=== PATIENT | male | born 1980 | race Caucasian/White ===

== ENCOUNTER 2018-01-11 17:54 | Emergency (ER) | payer MEDICARE, MEDICAID ==
[2018-01-11 18:01] VITALS: BP 133/90
[2018-01-11] MEDS ORDERED: HYDROcod/ACETAM 5/325 MG TABLET PO STA (18:21)
--- NOTE | 2018-01-11 18:24 | ED Physician Documentation ---
PD HPI LOWER EXT INJURY - Stated complaint Stated Complaint: KNEE INJURY - Chief complaint Chief Complaint: Ext Problem - History obtained from History obtained from: Patient - History of Present Illness PD HPI LOW EXT INJURY LOCATION: Right, Knee Type of injury: Twist Where injury occurred: Home Timing - onset: Today Timing - details: Abrupt onset Worsened by: Moving Associated symptoms: No: Weakness, Numbness, Tingling, Swelling - Additional information Additional information: He was helping someone lift a refrigerator and was on a step and started to fall in the knee twisted and he felt a pop over the patella. He is able to walk and bear weight but with a lot of pain. No other injuries. Review of Systems Constitutional: reports: Reviewed and negative Cardiac: reports: Reviewed and negative Respiratory: reports: Reviewed and negative PD PAST MEDICAL HISTORY - Past Medical History Psych: Depression, Anxiety - Present Medications Home Medications: Ambulatory Orders Medication Instructions Recorded Confirmed Haloperidol [Haldol] 10 mg PO DAILY 01/11/18 01/11/18 Meloxicam [Mobic] 7.5 mg PO BIDWM PRN #15 tablet 01/11/18 traZODone [Desyrel] 1 tab PO DAILY 01/11/18 01/11/18 - Allergies Allergies/Adverse Reactions: Allergies Allergy/AdvReac Type Severity Reaction Status Date / Time No Known Drug Allergies Allergy Verified 01/11/18 18:01 PD ED PE NORMAL - Vitals Vital signs reviewed: Yes - General General: Alert and oriented X 3, No acute distress - Extremities Extremities: Other (No obvious deformity or effusion of the right knee, extensor tendon function is intact. He has mild tenderness over the medial joint line and pain with ACL testing but no laxity of that or any of the other ligaments.) - Neuro Neuro: Alert and oriented X 3, Normal speech Results - Vitals Vitals: Vital Signs - 24 hr 01/11/18 17:57 Temperature 36.8 C Heart Rate 116 H Respiratory 16 Rate Blood Pressure 133/90 H O2 Saturation 97 Oxygen O2 Source Room air - Rads (name of study) R knee 4v Radiology: EMP read contemporaneously (NAD) Departure - Departure Disposition: 01 Home, Self Care Clinical Impression: Right knee sprain Qualifiers: Encounter type: initial encounter Involved ligament of knee: unspecified ligament Qualified Code(s): S83.91XA - Sprain of unspecified site of right knee , initial encounter Condition: Good Record reviewed to determine appropriate education?: Yes Instructions: ED Sprain Knee Prescriptions: Meloxicam [Mobic] 7.5 mg PO BIDWM PRN #15 tablet PRN Reason: Pain Comments: Recheck with your doctor in 1 week. Return if worse. Your blood pressure was elevated today on check into the emergency department. This does not mean that you have hypertension, it is a common phenomenon to come to the emergency department and have elevated blood pressure. I recommend that you see your primary care physician within the week to have it rechecked when you are feeling better.
--- NOTE | 2018-01-11 19:06 | XRAY Preliminary Report ---
Exam: XR KNEE 4 VIEW RT IMPRESSION: Normal knee radiography. [facility] SITE ID: [id number]
--- NOTE | 2018-01-11 19:10 | XRAY Report ---
EXAM: RIGHT KNEE RADIOGRAPHY. EXAM DATE: 01/11/2018 06:36 PM. CLINICAL HISTORY: Anterior knee pain after twisting injury 2 days ago. COMPARISON: 01/09/2009. MRI of the right knee 05/20/2009. TECHNIQUE: 4 views. FINDINGS: Bones: Normal. No fractures or bone lesions. Joints: Normal. No effusion. No subluxations. Soft Tissues: Normal. No soft tissue swelling. IMPRESSION: Normal knee radiography. [facility] Referring Provider Line: [phone] SITE ID: [id number]
[2018-01-11] MEDS ORDERED: MELOXICAM 7.5 MG TABLET PO STA (19:16)
== END 2018-01-11 19:53 | disposition home or self-care (01) ==
LOC: ED 17:54
DX: S83.91XA Sprain of unspecified site of right knee, initial encounter (principal); R03.0 Elevated blood-pressure reading, without diagnosis of hypertension; W18.43XA Slipping, tripping and stumbling without falling due to stepping from one level to another, initial encounter; W22.8XXA Striking against or struck by other objects, initial encounter; X50.0XXA Overexertion from strenuous movement or load, initial encounter; Y92.009 Unspecified place in unspecified non-institutional (private) residence as the place of occurrence of the external cause
CPT/HCPCS: 29530; 73564; 99283; A9270

== ENCOUNTER 2022-05-27 11:44 | Emergency (ER) | payer MEDICARE, MEDICAID ==
[2022-05-27 12:02] VITALS: BP 157/90
--- NOTE | 2022-05-27 12:49 | ED Physician Documentation ---
History of Present Illness - Stated complaint Stated Complaint: LIGHTHEAD/SYNCOPAL - Chief complaint Chief Complaint: General - History obtained from History obtained from: Patient (41-year-old gentleman presents for the evaluation of potential radiation to the left parietal region. He states that he has been using a telephone landline and over the last 12 years has been exposed to radiation in that area. He has a history of methamphetamine abuse.) Review of Systems Constitutional: denies: Fever, Chills Ears: denies: Ear pain Nose: denies: Rhinorrhea / runny nose Throat: denies: Sore throat PD PAST MEDICAL HISTORY - Past Medical History Psych: Depression, Anxiety - Past Surgical History Past Surgical History: Yes - Present Medications Home Medications: Ambulatory Orders Medication Instructions Recorded Confirmed Meloxicam [Mobic] 7.5 mg PO BIDWM PRN #15 tablet 01/11/18 haloperidoL [Haldol] 10 mg PO DAILY 01/11/18 01/11/18 traZODone [Desyrel] 1 tab PO DAILY 01/11/18 01/11/18 - Allergies Allergies/Adverse Reactions: Allergies Allergy/AdvReac Type Severity Reaction Status Date / Time No Known Drug Allergies Allergy Verified 05/27/22 11:59 - Social History Does the pt smoke?: No Smoking Status: Never smoker Does the pt drink ETOH?: No Does the pt have substance abuse?: No PD ED PE NORMAL - Vitals Vital signs reviewed: Yes - General General: Alert and oriented X 3, No acute distress, Other (He is delusional, how the FBI in [place] is after him.) - HEENT HEENT: PERRL, EOMI, Other (No discoloration or abnormality about the scalp or face.) - Neck Neck: Supple, no meningeal sign, No bony TTP - Neuro Neuro: Alert and oriented X 3, Normal speech Results - Vitals Vitals: Vital Signs - 24 hr 05/27/22 11:55 Temperature 35.7 C L Heart Rate 114 H Respiratory 18 Rate Blood Pressure 157/90 H O2 Saturation 99 Oxygen O2 Source Room air PD MEDICAL DECISION MAKING - ED course ED course: 41-year-old gentleman with history of methamphetamine abuse presents worried about radiation to the left parietal region. He became frustrated shortly after my evaluation and ambulated out of the emergency department. Departure - Departure Disposition: 01 Home, Self Care Clinical Impression: Methamphetamine abuse, Delusions Condition: Stable Comments: He left without discharge instructions
== END 2022-05-27 13:38 | disposition home or self-care (01) ==
LOC: ED 11:44
DX: F22 Delusional disorders (principal); F15.10 Other stimulant abuse, uncomplicated
CPT/HCPCS: 99281; 99282

== ENCOUNTER 2022-10-18 22:36 | Outpatient (CLI) | payer MEDICARE, MEDICAID | END 2022-10-18 23:59 | disposition critical access hospital (66) | LOC: EMS 22:36 | DX: Z04.6 Encounter for general psychiatric examination, requested by authority (principal); R46.89 Other symptoms and signs involving appearance and behavior; S61.412A Laceration without foreign body of left hand, initial encounter; X58.XXXA Exposure to other specified factors, initial encounter; Z78.1 Physical restraint status | CPT/HCPCS: A0425; A0429 ==

== ENCOUNTER 2022-10-18 22:48 | Emergency (ER) | payer OTHER, MEDICARE, MEDICAID ==
[2022-10-18] MEDS ORDERED: TETANUS/DIPHTHERIA/PERTUSSIS 0.5 ML SYRINGE IM ONE (22:50)
[2022-10-18] MEDS ORDERED: LIDOCAINE 1%-EPI 1:100000 10 ML MDV SUBQ STA (22:50)
[2022-10-18] MEDS ORDERED: QUEtiapine 100 MG TABLET PO STA (23:01)
--- NOTE | 2022-10-18 23:08 | ED Physician Documentation ---
History of Present Illness - Stated complaint Stated Complaint: FIT/HAND LAC - Chief complaint Chief Complaint: General - History obtained from History obtained from: Patient - Additonal information Additional information: 42-year-old man with history of methamphetamine abuse presents, STEF souza, with left hand laceration after several neighbors reported he had been knocking on doors, brandishing a knife, and running from police. Patient himself states he was unsure how it had happened. he states his tetanus is utd. denies SI/HI/AVH. patient appears intoxicated with methamphetamine and does report using meth. PD PAST MEDICAL HISTORY - Past Medical History Psych: Depression, Anxiety Musculoskeletal: None - Past Surgical History Past Surgical History: Yes - Present Medications Home Medications: Ambulatory Orders Medication Instructions Recorded Confirmed Meloxicam [Mobic] 7.5 mg PO BIDWM PRN #15 tablet 01/11/18 haloperidoL [Haldol] 10 mg PO DAILY 01/11/18 01/11/18 traZODone [Desyrel] 1 tab PO DAILY 01/11/18 01/11/18 - Allergies Allergies/Adverse Reactions: Allergies Allergy/AdvReac Type Severity Reaction Status Date / Time No Known Drug Allergies Allergy Verified 10/18/22 23:05 - Social History Does the pt smoke?: No Smoking Status: Never smoker Does the pt drink ETOH?: No Does the pt have substance abuse?: No PD ED PE NORMAL - Vitals Vital signs reviewed: Yes - General General: Alert and oriented X 3, No acute distress - HEENT HEENT: Atraumatic, PERRL, EOMI - Neck Neck: Supple, no meningeal sign - Cardiac Cardiac: Other (Tachycardic rate, regular rhythm) - Respiratory Respiratory: No respiratory distress, Clear bilaterally - Abdomen Abdomen: Non tender, Non distended - Derm Derm: Normal color, Warm and dry - Neuro Neuro: No motor deficit, No sensory deficit - Psych Psych: Normal mood, Normal affect Results - Vitals Vitals: Vital Signs - 24 hr 10/18/22 10/18/22 10/18/22 22:47 23:05 23:56 Temperature 36.1 C L Heart Rate 126 H 127 H 100 Respiratory 18 18 20 Rate Blood Pressure 110/76 113/76 121/90 H O2 Saturation 94 97 93 10/19/22 00:04 Temperature Heart Rate 100 Respiratory 20 Rate Blood Pressure 105/68 O2 Saturation 93 Oxygen O2 Source Room air - Labs Labs: Laboratory Tests 10/18/22 10/18/22 10/18/22 23:04 23:17 23:17 WBC 15.9 H RBC 5.35 Hgb 15.7 Hct 47.8 MCV 89.3 MCH 29.3 MCHC 32.8 RDW 13.4 Plt Count 225 MPV 11.5 H Neut # (Auto) 14.4 H Lymph # (Auto) 0.5 L Ramsey # (Auto) 0.9 Eos # (Auto) 0.1 Baso # (Auto) 0.0 Absolute Nucleated RBC 0.00 Nucleated RBC % 0.0 Sodium 137 Potassium 4.1 Chloride 103 Carbon Dioxide 24 Anion Gap 10.0 BUN 16 Creatinine 1.5 H Estimated GFR (MDRD) 52 L Glucose 121 H Calcium 9.9 Total Bilirubin 0.9 AST 49 H ALT 26 Alkaline Phosphatase 80 Total Protein 7.6 Albumin 4.5 Globulin 3.1 Albumin/Globulin Ratio 1.5 Lipase 52 H TSH Salicylates < 6.0 Acetaminophen < 10 L Ethyl Alcohol < 5.0 SARS-CoV-2 (PCR) NOT DETECTED 10/18/22 23:17 WBC RBC Hgb Hct MCV MCH MCHC RDW Plt Count MPV Neut # (Auto) Lymph # (Auto) Ramsey # (Auto) Eos # (Auto) Baso # (Auto) Absolute Nucleated RBC Nucleated RBC % Sodium Potassium Chloride Carbon Dioxide Anion Gap BUN Creatinine Estimated GFR (MDRD) Glucose Calcium Total Bilirubin AST ALT Alkaline Phosphatase Total Protein Albumin Globulin Albumin/Globulin Ratio Lipase TSH 1.54 Salicylates Acetaminophen Ethyl Alcohol SARS-CoV-2 (PCR) Procedures - Laceration (location) Hand left Length in cm: 4 Wound type: Linear Neurovascular status: Sensory intact, Motor intact, Vascular intact Tendon involvement: Tendon intact Anesthesia: Lidocaine 1%, With bicarb Wound preparation: Irrigated copiously NS Skin layer closure: Nylon, Interrupted, Size #-0 - enter number (4) Other: Patient tolerated well, No complications, Neurovascular intact, Dressing applied, Tetanus UTD PD Medical Decision Making - ED course ED course: 42-year-old man brought in by [employer]'s department with report that he has been all over [place] today knocking on doors with a knife. Most recent call was from a neighbor reporting that he was at the door brandishing a knife covered in blood. Patient has laceration to the left hand and is exhibiting bizarre behavior, endorsing methamphetamine use. Alert and oriented x3 but visibly intoxicated with methamphetamine and speaking in bizarre language. however he denies SI/HI. Agreeable to oral Seroquel. Patient was restrained by police upon initial arrival. hydrological technical officer recommended not to remove restraints given that he could pose a danger to staff safety. Police then reported they had to leave immediately after bringing him to the ED. Will continue restraints for now and reevaluate. Plan to repair laceration. patient stated tdap utp. We will also undertake medical/psychiatric evaluation. Labwork remarkable for mild uptrending creatinine. recommend oral hydration from custodial. Patient was provided with seroquel and ativan to treat agitation related to meth abuse. He is not endorsing SI/HI at this time but will benefit from meth detox resources, mental health follow up and repeat lab testing with a pcp. referral provided. police returned to the ED per RN request. d/w [employer] and patient will be released to custodial. return precautions given. Departure - Departure Disposition: 01 Home, Self Care Clinical Impression: Methamphetamine abuse, Laceration Condition: Stable Instructions: ED Laceration All Comments: You were seen in the emergency department for laceration of the hand. 4 stitches were placed which need to be removed in 14 days. Please follow-up with a primary care provider to have this done or go to urgent care or the emergency department. Your kidney function testing today showed some mild inflammation that will require you to drink lots of water and have repeat lab work in a couple weeks. You also will need methamphetamine detox resources and mental health follow-up. This can be coordinated through a primary care provider. A referral was provided. 1 mg of oral Ativan and 150 mg of oral Seroquel was given to Mr. Janna peraza for agitation. Discharge Date/Time: 10/19/22 00:17
--- NOTE | 2022-10-18 23:12 | ED Physician Documentation ---
Restraint [id number] - Immediate Situation Face to Face Evaluation Date: 10/18/22 Face to Face Evaluation Time: 23:00 Restraint Classification: Violent, physical Restraint Type: Locked extremity - Patient's Reaction & Behaviors Safety: Compliant Verbal: Asking for information Harm: Actual harm to self, Potential harm to others Physical: Aggressive behavior Other: Resting quietly - Behavioral Condition Attitude: Other (intoxicated with methamphetamine) Behavior: Cooperative Orientation: Person, Place, Time Mood: Anxious, Other (intoxicated) - Evaluation Review of Systems: see HPI Pertinent History/Illicit Drugs/Medications/Results: See HPI for details - Plan Need to Continue or Terminate Violent or Chemical Restraint: Will discontinue when safe.
[2022-10-18] MEDS ORDERED: BUFFERED LIDOCAINE 10 ML SYRINGE SUBQ STA (23:13)
[2022-10-18 23:22] LABS: BASOPHILS % (AUTO) 0.2 %; EOSINOPHILS # (AUTO) 0.1 10^3/uL (0.0-0.7); EOSINOPHILS % (AUTO) 0.4 %; HCT - HEMATOCRIT 47.8 % (42.0-52.0); HGB - HEMOGLOBIN 15.7 g/dL (14.0-18.0); LYMPHOCYTES # (AUTO) 0.5 10^3/uL (1.5-3.5); LYMPHOCYTES % (AUTO) 3.3 %; MEAN CORPUSCULAR HEMOGLOBIN 29.3 pg (27.0-31.0); MEAN CORPUSCULAR HGB CONC 32.8 g/dL (32.0-36.0); MEAN CORPUSCULAR VOLUME 89.3 fL (80.0-94.0); MEAN PLATELET VOLUME 11.5 fL (7.4-11.4); MONOCYTES # (AUTO) 0.9 10^3/uL (0.0-1.0); MONOCYTES % (AUTO) 5.4 %; NEUTROPHILS # (AUTO) 14.4 10^3/uL (1.5-6.6); NEUTROPHILS % (AUTO) 90.3 %; PLT - PLATELET COUNT 225 10^3/uL (130-450); RED BLOOD COUNT 5.35 10^6/uL (4.70-6.10); RED CELL DISTRIBUTION WIDTH 13.4 % (12.0-15.0); WHITE BLOOD COUNT 15.9 x10^3/uL (4.8-10.8)
[2022-10-18 23:38] LABS: ACETAMINOPHEN < 10 ug/mL (10-30); ALBUMIN 4.5 g/dL (3.2-5.5); ALBUMIN/GLOBULIN RATIO 1.5 (1.0-2.2); ALKALINE PHOSPHATASE 80 IU/L (42-121); ALT ALANINE AMINOTRANSFERASE 26 IU/L (10-60); AST ASPARTATE AMINOTRANSFERASE 49 IU/L (10-42); BILIRUBIN,TOTAL 0.9 mg/dL (0.2-1.0); BUN - BLOOD UREA NITROGEN 16 mg/dL (6-20); CALCIUM 9.9 mg/dL (8.5-10.3); CARBON DIOXIDE - CO2 24 mmol/L (21-32); CHLORIDE 103 mmol/L (101-111); CREATININE 1.5 mg/dL (0.6-1.2); ETOH - ETHANOL < 5.0 mg/dL; GFR - MDRD 52 (>89); GLUCOSE 121 mg/dL (70-100); LIPASE 52 U/L (22-51); POTASSIUM 4.1 mmol/L (3.5-5.0); SALICYLATE < 6.0 mg/dL; SODIUM 137 mmol/L (135-145); TOTAL PROTEIN 7.6 g/dL (6.7-8.2)
[2022-10-18] MEDS ORDERED: LORazepam 1 MG TABLET PO STA (23:55)
[2022-10-19 00:07] VITALS: BP 105/68
== END 2022-10-19 00:17 | disposition home or self-care (01) ==
LOC: EDBD → ED 22:48
DX: F15.10 Other stimulant abuse, uncomplicated (principal); S61.412A Laceration without foreign body of left hand, initial encounter; W45.8XXA Other foreign body or object entering through skin, initial encounter; Y92.9 Unspecified place or not applicable; F32.A Depression, unspecified; F41.9 Anxiety disorder, unspecified; Z20.822 Contact with and (suspected) exposure to COVID-19; Z79.899 Other long term (current) drug therapy
CPT/HCPCS: 12002; 36415; 80053; 80307; 80320; 80329; 83690; 84443; 85025; 87635; 99284; 99285; A9270; J8499